=== PATIENT | female | born 1985 | race Two or more races ===

== ENCOUNTER 2022-05-21 06:34 | Emergency (ER) | payer MEDICAID ==
[~2022-05-21] VITALS: Ht 170.2 cm; Wt 61.0 kg
[2022-05-21] MEDS ORDERED: LIDOCAINE 1% HCL (LOCAL ANESTH.) INJ 20ML MDV ID ONE (07:45)
[2022-05-21 10:00] VITALS: BP 133/71
[2022-05-21] MEDS ORDERED: TETANUS-DIPTH-ACEL PERTUSSIS 0.5ML SYR Tdap IM ONE (10:00)
== END 2022-05-21 10:38 | disposition home or self-care (01) ==
LOC: ER 06:34
DX: S01.81XA Laceration without foreign body of other part of head, initial encounter (principal); W18.09XA Striking against other object with subsequent fall, initial encounter; Y93.89 Activity, other specified; Y92.89 Other specified places as the place of occurrence of the external cause; Y99.8 Other external cause status
CPT/HCPCS: 12011; 99282; J2001; 90715